=== PATIENT | female | born 1960 | race Two or more races ===

== ENCOUNTER 2016-10-14 18:05 | Emergency (ER) | payer MEDICAID ==
[~2016-10-14] VITALS: Ht 175.3 cm; Wt 59.0 kg
[2016-10-14] MEDS ORDERED: OXYcodone/APAP 5/325MG TABLET ONE ×2 (18:51→19:27)
[2016-10-14] MEDS ORDERED: IBUPROFEN 200 MG TABLET ONE (18:51)
[2016-10-14] MEDS ORDERED: IBUPROFEN 200 MG TABLET PO ONE (19:00)
[2016-10-14] MEDS ORDERED: OXYcodone/APAP 5/325MG TABLET PO ONE ×2 (19:00→19:30)
[2016-10-14] MEDS ORDERED: SODIUM CHLORIDE FLUSH 10ML SYR IVF ONE (20:30)
[2016-10-14 21:14] VITALS: BP 134/70
== END 2016-10-14 21:16 | disposition home or self-care (01) ==
LOC: ED 21:05
DX: S22.22XA Fracture of body of sternum, initial encounter for closed fracture (principal); S20.219A Contusion of unspecified front wall of thorax, initial encounter; Z88.8 Allergy status to other drugs, medicaments and biological substances; V49.9XXA Car occupant (driver) (passenger) injured in unspecified traffic accident, initial encounter; Y93.89 Activity, other specified; Y99.8 Other external cause status; Y92.488 Other paved roadways as the place of occurrence of the external cause
CPT/HCPCS: 71020; 71250; 93005